=== PATIENT | female | born 1995 | race African-American/Black ===

== ENCOUNTER 2017-01-15 08:01 | Day surgery (SDC) | payer OTHER ==
[~2017-01-15] VITALS: Ht 154.9 cm; Wt 48.5 kg
[~2017-01-15 08:01] MED LIST: CLARITIN10 MG PO
[2017-01-15 08:47] VITALS: BP 110/60
[2017-01-15] MEDS ORDERED: ENDOCET 5-3251 EACH PO (10:35)
[2017-01-15 11:35] VITALS: BP 105/64
[2017-01-15 12:37] VITALS: BP 100/57
[2017-01-15 13:31] VITALS: BP 100/58
== END 2017-01-15 13:41 | disposition home or self-care (01) ==
LOC: SDC
PROC: 0U9 Female Reproductive System, Drainage (ICD-10-PCS; principal; 2017-01-15)
DX: N83.202 Unspecified ovarian cyst, left side (principal)
CPT/HCPCS: 88160; J1100; J1885; J2250; J2405; J3010; S0020

== ENCOUNTER 2018-06-11 20:54 | Inpatient (IN) | payer OTHER ==
[~2018-06-11] VITALS: Ht 154.9 cm; Wt 47.2 kg
[~2018-06-11 20:54] MED LIST changes: +ENDOCET 5-3251 EACH PO; +MIRENA1 EACH IY
[2018-06-12 06:07] VITALS: BP 103/70
[2018-06-12 12:17] VITALS: BP 106/62
[2018-06-12 15:52] VITALS: BP 97/88
[2018-06-12 20:08] VITALS: BP 90/56
[2018-06-13 00:13] VITALS: BP 89/44
[2018-06-13 00:53] VITALS: BP 96/58
[2018-06-13 06:25] LABS: HEMATOCRIT 32.4 % (36.0-46.0); MCH 30.9 PG (29.0-34.0); MCHC 33.3 G/DL (30.0-36.0); MCV 92.6 FL (83-99); PLATELET COUNT 191 K/uL (156-360); RBC DIS.WIDTH-CV 12.1 % (11.8-14.6); RBC DIS.WIDTH-SD 41.1 % (39-53); WHITE BLOOD COUNT 9.6 K/uL (4.1-10.2)
[2018-06-13 06:29] LABS: HEMOGLOBIN 10.8 G/DL (11.9-15.5)
[2018-06-13 07:05] VITALS: BP 95/58
[2018-06-13 12:02] VITALS: BP 99/60
[2018-06-13 16:28] VITALS: BP 93/57
[2018-06-13] MEDS ORDERED: IBUPROFEN800 MG PO (18:52)
[2018-06-13] MEDS ORDERED: ENDOCET 5-3251 EACH PO (18:52)
[2018-06-13 19:55] VITALS: BP 96/58
[2018-06-14 00:48] VITALS: BP 90/56
[2018-06-14 03:19] VITALS: BP 95/56
[2018-06-14 07:20] VITALS: BP 95/60
== END 2018-06-14 09:16 | disposition home or self-care (01) | DRG 743 ==
LOC: SDC → ENRESERV 20:54 → 2EASTP 06-12 05:37 → 2SOUTH 06-12 05:37 → EDSTATUS 06-12 09:53 → 2SOUTH 06-12 10:06 → SDC 06-12 10:56 → ENRESERV 06-12 11:13 → 2EASTP 06-12 11:36 → SDC 06-12 11:55 → 2EASTP 06-14 09:16
PROVIDERS: Obstetrics & Gynecology Obstetrics
DX: N83.202 Unspecified ovarian cyst, left side (principal); N83.201 Unspecified ovarian cyst, right side; Z97.5 Presence of (intrauterine) contraceptive device
CPT/HCPCS: 36415; 84702; 85025; 85027; 86850; 86900; 86901; 88307; 94760; J0131; J0690; J1100; J1170; J1885; J2250; J2405; J2710; J3010; J3475; J7120; J7643; S0020